=== PATIENT | female | born 1995 | race Two or more races ===

== ENCOUNTER 2017-12-08 17:27 | Emergency (ER) | payer MEDICAID ==
[~2017-12-08] VITALS: Ht 157.5 cm; Wt 61.2 kg
[2017-12-08 17:35] VITALS: BP 108/66
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
[2017-12-08] MEDS ORDERED: IBUPROFEN600 MG ORAL (18:47)
[2017-12-08] MEDS ORDERED: ROBAXIN-750750 MG PO (18:47)
[2017-12-08 18:51] VITALS: BP 108/66
== END 2017-12-08 18:50 | disposition home or self-care (01) ==
LOC: EMR 18:11
DX: S16.1XXA Strain of muscle, fascia and tendon at neck level, initial encounter (principal); S40.012A Contusion of left shoulder, initial encounter; V43.62XA Car passenger injured in collision with other type car in traffic accident, initial encounter; Y92.410 Unspecified street and highway as the place of occurrence of the external cause
CPT/HCPCS: 99283